=== PATIENT | female | born 1965 | race Caucasian/White ===

== ENCOUNTER → 2018-10-05 | Outpatient (CLI) | payer OTHER ==
--- NOTE | 2018-10-05 16:52 | P.GSHP ---
History of Present Illness H&P Date: 10/05/18 Chief Complaint: Abnormal mammogram and ultrasound The patient is a 53-year-old white female who had a mammogram and ultrasound performed. The mammogram was in July 2018 this revealed the breasts to be heterogeneously dense and targeted ultrasound of the left breast was ramiro mmended. The ultrasound was performed on 08/31/2018 which revealed a 7 mm oval lesion which could reflect a debris-filled cyst but could not exclude solid lesion. Attempted ultrasound-guided fine-needle aspiration and/or core biopsy with clip placement was recommended. The patient does not feel any lumps in her breasts. She has no skin changes of concern. She has never had a breast biopsy she has no evidence of any infection or trauma to her breast. The patient does drink caffeine daily. She smokes a pack of cigarettes every 4 days. She is exposed to secondhand smoke. She states chocolate regularly. Family history: maternal uncle: lung cancer paternal aunt: lymphoma Hormonal history: Menarche: 14 G0 menopause:hysterectomy at 50, took ovaries, no cancer BCP: none hormones:none Surgical history: 1. Total abdominal hysterectomy 2.gallbaldder 3. detached retina Medical History: 1. back pain 2. ADHA Social History: smoke: One pack every 4 days Alcohol: Negative Drugs: Marijuana occasionally - Constitutional Constitutional: Reports sweats - EENT Eyes: left blurred vision, denies pain Ears: bilateral: decreased hearing, tinnitus Ears, nose, mouth and throat: Reports headache, Reports sore throat - Breasts Breasts: bilateral: as per HPI - Cardiovascular Cardiovascular: Denies chest pain, Denies shortness of breath - Respiratory Comment: COPD, smoker - Gastrointestinal Gastrointestinal: Denies abdominal pain, Denies diarrhea, Denies nausea, Denies vomiting - Genitourinary (Female) Genitourinary: Reports kidney stones, Denies dysuria, Denies hematuria - Menstruation Menstruation: Reports post hysterectomy - Musculoskeletal Comment: arthritis Musculoskeletal: Reports myalgias - Integumentary Integumentary: Denies pruritus, Denies rash - Neurological Comment: hands weak Neurological: Reports numbness, Reports weakness - Psychiatric Comment: ADHD Psychiatric: Reports anxiety, Reports depression - Endocrine Endocrine: Reports fatigue, Reports weight change - Hematologic/Lymphatic Comment: none - Allergic/Immunologic Allergic/Immunologic: Reports as per HPI Medications and Allergies Home Medications Medication Instructions Recorded Confirmed Type Dextroamphetamine/Amphetamine 20 mg PO BID 09/28/18 10/05/18 History [Adderall] Doxepin HCl 75 mg PO HS PRN 09/28/18 10/05/18 History Gabapentin [Neurontin] 300 mg PO BID 09/28/18 10/05/18 History Venlafaxine HCl [Effexor] 75 mg PO BID 09/28/18 10/05/18 History Allergies Allergy/AdvReac Type Severity Reaction Status Date / Time No Known Allergies Allergy Verified 10/05/18 16:23 Surgical - Exam BMI 21.3 - General cachectic - Eyes normal ocular movement - ENT no hearing loss - Neck trachea midline - Respiratory normal respiratory effort, clear to auscultation - Cardiovascular Rhythm: regular Heart Sounds: normal: S1, S2 - Abdomen Abdomen: soft, non tender, no guarding, no rigid, no rebound - Integumentary tattoos - Neurologic no disoriented, no combative - Musculoskeletal normal gait - Psychiatric anxious oriented to time, oriented to person, oriented to place, speech is normal, memory intact breast exam: Breasts: Multiple positional exam no dominant masses or nodules of concern Right axilla: No adenopathy of concern Left breast: Multi-positional exam no dominant mass or nodules of concern Left axilla: No adenopathy of concern Results Mammogram and ultrasound results reviewed Assessment and Plan Assessment: Impression: 1. Fibrocystic breast changes 2. Abnormal mammogram and ultrasound of the left breast 3. Family history of cancer 4. ADHD 5. Back pain Plan: 1. Ultrasound core biopsy of the left breast 2. Follow up after ultrasound core biopsy of the left breast CC:DR. Sotero [place]
== END | disposition home or self-care (01) ==
DX: Z53.9 Procedure and treatment not carried out, unspecified reason (principal)

== ENCOUNTER → 2018-10-10 | Day surgery (SDC) | payer OTHER ==
[2018-10-10 11:35] VITALS: RESP 16; BMI 21.7
[2018-10-10 15:12] VITALS: BP 140/77; PULSE 77; TEMP 98.1
--- NOTE | 2018-10-10 15:26 | USB ---
EXAMINATION TYPE: US biopsy breast VAD LT DATE OF EXAM: 10/10/2018 CLINICAL HISTORY: R92.8 abnl mammogram. TECHNIQUE: Ultrasound guided core biopsy of left breast. COMPARISON: Prior ultrasound from an outside institution FINDINGS: The procedure of ultrasound guided core biopsy was explained to the patient. Benefits, alternatives, and risks were discussed. An informed consent was then obtained. Preprocedural timeout was performed The patient was placed in supine positioning for imaging and for the procedure. The overlying skin was prepped and draped in usual sterile fashion. 10 cc of 1% lidocaine was used as anesthetic into the skin and subcutaneous tissue up to area of concern in the left breast. Under ultrasound guidance, a 12-gauge vacuum assisted biopsy gun device was used to obtain 5 core samples. Following this, a coil-shaped biopsy marker was left in the mass. The patient tolerated the procedure well without any immediate complication. The patient was kept in the radiology department for short stay after the procedure and then discharged home in stable condition. IMPRESSION: Successful ultrasound guided core biopsy of a 0.7 cm mass at the 8:00 position in the left breast, full pathology results to follow. This may represent an inflammatory cyst. The patient did develop a hematoma after biopsy with hemostasis achieved after prolonged compression. The patient was instructed to return to the imaging center or either if the hematoma increased in size. The margins were delineated with a marker at the skin surface. No postprocedural mammogram was performed due to the hematoma and appropriate visualization of the biopsy marker on ultrasound. Pathology Results: Benign LEFT BREAST LESION AT EIGHT O'CLOCK POSITION, NEEDLE CORE BIOPSIES: Fibrocystic spectrum changes including usual type duct hyperplasia with coarse intraductal mineralizations and usual type duct hyperplasia. Recommendation Follow up mammogram of the left breast in 6 months. DAYNE
== END | disposition home or self-care (01) ==
LOC: RADUSWWP 10:40
PROVIDERS: ATTEND Surgery
DX: N62 Hypertrophy of breast (principal); N60.12 Diffuse cystic mastopathy of left breast
CPT/HCPCS: 88305; 19083; A4648; J2001

== ENCOUNTER → 2018-10-17 | Outpatient (CLI) | payer OTHER ==
[2018-10-17 14:17] VITALS: BP 161/90; PULSE 89; RESP 18; TEMP 98.7; BMI 21.2
--- NOTE | 2018-10-17 14:19 | P.PN ---
Subjective Progress Note Date: 10/17/18 The patient is a 53-year-old white female who had a mammogram and ultrasound performed. The mammogram was in July 2018 this revealed the breasts to be heterogeneously dense and targeted ultrasound of the left breast was recommended. The ultrasound was performed on 08/31/2018 which revealed a 7 mm oval lesion which could reflect a debris-filled cyst but could not exclude solid lesion. Attempted ultrasound-guided fine-needle aspiration and/or core biopsy with clip placement was recommended. This was performed on 730 119. Pathology was benign revealing fibrocystic spectrum changes including usual type duct hyperplasia with coarse intraductal minimalization and usual type duct hyperplasia. The patient does drink caffeine daily. She smokes a pack of cigarettes every 4 days. She is exposed to secondhand smoke. She states chocolate regularly. Family history: maternal uncle: lung cancer paternal aunt: lymphoma Hormonal history: Menarche: 14 G0 menopause:hysterectomy at 50, took ovaries, no cancer BCP: none hormones:none Surgical history: 1. Total abdominal hysterectomy 2.gallbaldder 3. detached retina Medical History: 1. back pain 2. ADHA Social History: smoke: One pack every 4 days Alcohol: Negative Drugs: Marijuana occasionally - Constitutional Constitutional: Reports sweats - EENT Eyes: left blurred vision, denies pain Ears: bilateral: decreased hearing, tinnitus Ears, nose, mouth and throat: Reports headache, Reports sore throat - Breasts Breasts: bilateral: as per HPI - Cardiovascular Cardiovascular: Denies chest pain, Denies shortness of breath - Respiratory Comment: COPD, smoker - Gastrointestinal Gastrointestinal: Denies abdominal pain, Denies diarrhea, Denies nausea, Denies vomiting - Genitourinary (Female) Genitourinary: Reports kidney stones, Denies dysuria, Denies hematuria - Menstruation Menstruation: Reports post hysterectomy - Musculoskeletal Comment: arthritis Musculoskeletal: Reports myalgias - Integumentary Integumentary: Denies pruritus, Denies rash - Neurological Comment: hands weak Neurological: Reports numbness, Reports weakness - Psychiatric Comment: ADHD Psychiatric: Reports anxiety, Reports depression - Endocrine Endocrine: Reports fatigue, Reports weight change - Hematologic/Lymphatic Comment: none Objective - Constitutional General appearance: Present: average body habitus - EENT Eyes: Present: EOMI ENT: Present: hearing grossly normal - Neck Neck: Present: normal ROM - Respiratory Details: Mild wheezing left lung base on inspiration otherwise clear - Cardiovascular Rhythm: regular Heart sounds: normal: S1, S2 - Gastrointestinal General gastrointestinal: Present: soft - Integumentary Integumentary Comment(s): multiple tattoos - Musculoskeletal Musculoskeletal: Present: gait normal - Psychiatric Psychiatric: Present: A&O x's 3, appropriate affect, intact judgment & insight - Additional findings Additional findings: Examination of left breast shows ecchymosis from biopsy site, no evidence of infection, there is a hematoma which is approximately 6.5 x 5 cm in size Assessment and Plan Assessment: Impression: 1. Left breast fibrocystic breast changes on biopsy benign 2. Resolving ecchymosis/hematoma 3. Fibrocystic breast changes 4. ADHD 5. Back pain Plan: 1. Patient will use cold compresses on breast as needed 2. Follow up here in 3 months 3. left breast mammogram and ultrasound in 6 months CC: Dr. Carpio
== END ==
LOC: WWCWWP 14:04
PROVIDERS: ATTEND Surgery
DX: Z53.9 Procedure and treatment not carried out, unspecified reason (principal)

== ENCOUNTER → 2019-12-19 | Outpatient (CLI) | payer OTHER ==
--- NOTE | 2019-12-23 10:56 | MM ---
Reason for exam: additional evaluation requested from prior study. Last mammogram was performed 1 year and 5 months ago. History: Patient is postmenopausal and is nulliparous. Family history of breast cancer in sister at age 59 and breast cancer in paternal aunt at age 60. Benign US biopsy breast VAD LT of the left breast, October 10, 2018. Physical Findings: Nurse did not find any significant physical abnormalities on exam. MG 3D Diag Mammo W/Cad SONYA Bilateral CC and MLO view(s) were taken. Prior study comparison: July 12, 2018, mammogram, performed at [facility]. December 25, 2014, mammogram, performed at [facility]. The breast tissue is heterogeneously dense. This may lower the sensitivity of mammography. Finding: There are typically benign round calcifications in both breasts. Previous mammotome biopsy in the left breast. Distortion at biopsy site. There is no discrete abnormality. These results were verbally communicated with the patient and result sheet given to the patient on 12/19/19. ASSESSMENT: Benign, BI-RAD 2 RECOMMENDATION: Routine screening mammogram of both breasts in 1 year.
== END | disposition home or self-care (01) ==
LOC: RADMAMWWP 09:34
PROVIDERS: ATTEND Surgery
DX: R92.8 Other abnormal and inconclusive findings on diagnostic imaging of breast (principal)
CPT/HCPCS: 77066; G0279; 77062

== ENCOUNTER → 2020-03-27 | Outpatient (CLI) | payer OTHER ==
[2020-03-27 09:37] VITALS: BP 107/75; PULSE 89; RESP 18; TEMP 99
--- NOTE | 2020-03-27 09:49 | P.PN ---
Subjective Progress Note Date: 03/27/20 Principal diagnosis: fibrocystic breast The patient is a 53-year-old white female who had a mammogram and ultrasound performed. The mammogram was in July 2018 this revealed the breasts to be heterogeneously dense and targeted ultrasound of the left breast was recommended. The ultrasound was performed on 08/31/2018 which revealed a 7 mm oval lesion which could reflect a debris-filled cyst but could not exclude solid lesion. Attempted ultrasound-guided fine-needle aspiration and/or core biopsy with clip placement was recommended. This was performed on 73 119. Pathology was benign revealing fibrocystic spectrum changes including usual type duct hyperplasia with coarse intraductal minimalization and usual type duct hyperplasia. Her sister was recently diagnosed with breast cancer and the patient is interested in genetic counseling and possible genetic testing. She had a bilateral mammogram on 12-19-19 which was benign BIRAD 2. She does not note any lumps masses or nodules of concern in her breast. The patient does drink caffeine daily. She smokes a pack of cigarettes every 4 days. She is exposed to secondhand smoke. She eats chocolate regularly. Family history: maternal uncle: lung cancer paternal aunt: lymphoma sister: breast cancer paternal aunt: breast cancer of this Hormonal history: Menarche: 14 G0 menopause:hysterectomy at 50, took ovaries, no cancer BCP: none hormones:none Surgical history: 1. Total abdominal hysterectomy 2.gallbaldder 3. detached retina Medical History: 1. back pain 2. ADHD 3. COPD Social History: smoke: One pack every 4 days Alcohol: Negative Drugs: Marijuana occasionally - Constitutional Constitutional: Reports sweats - EENT Eyes: left blurred vision, denies pain Ears: bilateral: decreased hearing, tinnitus Ears, nose, mouth and throat: Reports headache, Reports sore throat - Breasts Breasts: bilateral: as per HPI - Cardiovascular Cardiovascular: Denies chest pain, Denies shortness of breath - Respiratory Comment: COPD, smoker - Gastrointestinal Gastrointestinal: Denies abdominal pain, Denies diarrhea, Denies nausea, Denies vomiting - Genitourinary (Female) Genitourinary: Reports kidney stones, Denies dysuria, Denies hematuria - Menstruation Menstruation: Reports post hysterectomy - Musculoskeletal Comment: arthritis Musculoskeletal: Reports myalgias - Integumentary Integumentary: Denies pruritus, Denies rash - Neurological Comment: hands weak Neurological: Reports numbness, Reports weakness - Psychiatric Comment: ADHD Psychiatric: Reports anxiety, Reports depression - Endocrine Endocrine: Reports fatigue, Reports weight change - Hematologic/Lymphatic Comment: none Objective - Vital Signs Vital signs: Intake & Output 03/26/20 03/27/20 03/27/20 18:59 06:59 18:59 Weight 71.668 kg - Exam BMI 23.3 - Constitutional General appearance: Present: average body habitus - EENT Eyes: Present: EOMI ENT: Present: hearing grossly normal - Neck Neck: Present: normal ROM - Respiratory Respiratory: bilateral: CTA - Cardiovascular Rhythm: regular Heart sounds: normal: S1, S2 - Gastrointestinal General gastrointestinal: Present: normal bowel sounds, soft - Integumentary Integumentary: Present: normal turgor - Musculoskeletal Musculoskeletal: Present: gait normal - Psychiatric Psychiatric: Present: A&O x's 3, appropriate affect - Additional findings Additional findings: breast exam: BRA: 38B inspection: Bilateral grade 1/2 ptosis Palpation: Right breast: Multi-positional exam fibrocystic changes no dominant masses or nodules of concern Right axilla: No adenopathy of concern Left breast: Multi-positional exam fibrocystic changes no dominant masses or nodules of concern Left axilla: No adenopathy of concern Assessment and Plan Assessment: Impression: Fibrocystic breast changes Back pain ADHD COPD mammogram 12-19-19 benign BIRAD 2 Plan: We have discussed caffeine and that that may exacerbate fibrocystic breast changes she understands and will contemplate decreasing caffeine and nicotine intake Repeat bilateral mammogram in 1 year with physician exam at that time Patient to follow up sooner if any questions or concerns CC: Dr. Dorene Schuler encounter 20 minutes, > 50% of time in planning and counselling
== END | disposition home or self-care (01) ==
LOC: WWCWWP 09:25
PROVIDERS: ATTEND Surgery
DX: Z53.9 Procedure and treatment not carried out, unspecified reason (principal)

== ENCOUNTER → 2021-02-12 | Outpatient (CLI) | payer OTHER ==
--- NOTE | 2021-02-15 11:38 | MM ---
Reason for exam: screening (asymptomatic). Last mammogram was performed 1 year and 2 months ago. History: Patient is postmenopausal and is nulliparous. Family history of breast cancer in sister at age 59 and breast cancer in paternal aunt at age 60. Benign US biopsy breast VAD LT of the left breast, October 10, 2018. Physical Findings: A clinical breast exam by your physician is recommended on an annual basis and results should be correlated with mammographic findings. MG 3D Screening Mammo W/Cad Bilateral CC and MLO view(s) were taken. Prior study comparison: December 19, 2019, bilateral MG 3d diag mammo w/cad SONYA. July 12, 2018, mammogram, performed at [facility]. The breast tissue is heterogeneously dense. This may lower the sensitivity of mammography. Stable benign calcifications. There is no discrete abnormality. No significant changes when compared with prior studies. ASSESSMENT: Benign, BI-RAD 2 RECOMMENDATION: Routine screening mammogram of both breasts in 1 year.
== END | disposition home or self-care (01) ==
LOC: RADMAMWWP 07:36
PROVIDERS: ATTEND Surgery
DX: Z12.31 Encounter for screening mammogram for malignant neoplasm of breast (principal); Z78.0 Asymptomatic menopausal state; Z80.3 Family history of malignant neoplasm of breast
CPT/HCPCS: 77063; 77067

== ENCOUNTER → 2023-08-01 | Outpatient (CLI) | payer OTHER ==
--- NOTE | 2023-08-08 19:45 | MM ---
Reason for Exam: Screening (asymptomatic). Last mammogram was performed 1 year(s) and 2 month(s) ago. Patient History: Menarche at age 14. Patient has no children. Left ovary removed at age 52. Right ovary removed at age 52. Hysterectomy at age 52. Postmenopausal. 10/10/2018, Benign Core Biopsy on the left side. Paternal aunt had breast cancer, age 60. Sister had breast cancer, age 59. Risk Values: Katlyn 5 year model risk: 2.7%. NCI Lifetime model risk: 15.9%. Prior Study Comparison: 12/19/2019 Bilateral Diagnostic Mammogram, [facility]ED WITH [facility]. 02/12/2021 Bilateral Screening Mammogram, MERGED WITH [facility]. 05/17/2022 Bilateral MG screening mammo w CAD, MERGED WITH [facility]. Tissue Density: The breasts are heterogeneously dense, which may obscure small masses. Findings: Analyzed By CAD. Microclip left breast from prior biopsy. There is no suspicious group of microcalcifications or new suspicious mass in either breast. Overall Assessment: Negative, BI-RAD 1 Management: Screening Mammogram of both breasts in 1 year. . Patient should continue monthly self-breast exams. A clinical breast exam by your physician is recommended on an annual basis. This exam should not preclude additional follow-up of suspicious palpable abnormalities. Note on Katlyn scores and lifetime risk: 1. A Katlyn score greater than 3% is considered moderate risk. If this is the case, consider specialist referral to assess eligibility for a risk reducing agent. 2. If overall lifetime risk for the development of breast cancer is 20% or higher, the patient may qualify for future screening with alternating mammogram and breast MRI. Electronically signed and approved by: Jaren Harding M.D. Radiologist
== END | disposition home or self-care (01) ==
LOC: RADMAMWWP 14:26
PROVIDERS: ATTEND Family Medicine
DX: Z12.31 Encounter for screening mammogram for malignant neoplasm of breast (principal); Z78.0 Asymptomatic menopausal state; Z80.3 Family history of malignant neoplasm of breast
CPT/HCPCS: 77067